=== PATIENT | female | born 1960 | race Caucasian/White ===

== ENCOUNTER → 2017-02-15 | Outpatient (CLI) | payer OTHER | END | disposition home or self-care (01) | LOC: CFH 10:40 | PROVIDERS: ATTEND Nurse Practitioner Family | DX: Z12.31 Encounter for screening mammogram for malignant neoplasm of breast (principal) | CPT/HCPCS: G0202 ==

== ENCOUNTER 2018-02-22 08:01 | Outpatient (CLI) | payer MEDICAID | END 2018-03-04 14:00 | disposition home or self-care (01) | LOC: CFH 08:01 | PROVIDERS: ATTEND Nurse Practitioner Family | DX: Z12.31 Encounter for screening mammogram for malignant neoplasm of breast (principal); Z13.820 Encounter for screening for osteoporosis; M85.88 Other specified disorders of bone density and structure, other site | CPT/HCPCS: 77080; 77067 ==

== ENCOUNTER → 2018-04-27 | Outpatient (CLI) | payer MEDICAID | END | disposition home or self-care (01) | LOC: CFH 08:10 | PROVIDERS: ATTEND Nurse Practitioner Family | DX: M47.816 Spondylosis without myelopathy or radiculopathy, lumbar region (principal); M48.061 Spinal stenosis, lumbar region without neurogenic claudication; M12.88 Other specific arthropathies, not elsewhere classified, other specified site; M53.86 Other specified dorsopathies, lumbar region | CPT/HCPCS: 72148 ==

== ENCOUNTER → 2018-07-21 | Outpatient (CLI) | payer MEDICAID ==
[~2018-07-21] MED LIST: LOSA25TA25 PO; METF500T17 PO; NAPR-685 PO
[2018-07-21 10:37] LABS: HCT (SEDRATE) 41.4 % (34.6-47.8)
[2018-07-21 10:39] LABS: BASOPHILS # (AUTO) 0.05 x10^3/uL (0-0.1); BASOPHILS % (AUTO) 1 % (0-1); EOSINOPHILS # (AUTO) 0.07 x10^3/uL (0-0.4); EOSINOPHILS % (AUTO) 1 % (1-7); LYMPHOCYTES # (AUTO) 3.33 x10^3/uL (1-3.4); LYMPHOCYTES % (AUTO) 36 % (22-44); MD NO; MEAN CORPUSCULAR HEMOGLOBIN 29.4 pg (27.0-34.8); MEAN CORPUSCULAR HGB CONC 33.2 g/dL (32.4-35.8); MEAN CORPUSCULAR VOLUME 88.6 fL (80-100); MEAN PLATELET VOLUME 6.7 fL (7.4-10.4); MONOCYTES # (AUTO) 0.66 x10^3/uL (0.2-0.8); MONOCYTES % (AUTO) 7 % (2-9); NEUTROPHILS # (AUTO) 5.09 x10^3/uL (1.8-6.8); NEUTROPHILS % (AUTO) 55 % (42-75); PLATELET COUNT 295 x10^3/uL (130-400); RED BLOOD COUNT 4.68 x10^6/uL (3.82-5.3); RED CELL DISTRIBUTION WIDTH 14.5 % (9.6-15.2)
[2018-07-21 10:44] LABS: ALANINE AMINOTRANSFERASE 24 U/L (12-78); ALBUMIN 3.6 g/dL (3.4-5.0); ANION GAP 5 mmol/L (5-15); CALCIUM 8.9 mg/dL (8.5-10.1); CHLORIDE 110 mmol/L (98-107)
[2018-07-21 10:46] LABS: INTERNATIONAL NORMALIZED RATIO 0.95 (0.93-1.1)
[2018-07-21 10:47] LABS: ALKALINE PHOSPHATASE 51 U/L (45-117); BILIRUBIN,TOTAL 0.2 mg/dL (0.2-1.0); CREATININE 0.68 mg/dL (0.55-1.02); TOTAL PROTEIN 7.3 g/dL (6.4-8.2)
[2018-07-21 10:55] LABS: MICROSCOPIC AUTO
[2018-07-21 11:01] LABS: CULTURE INDICATED? YES
== END | disposition home or self-care (01) ==
LOC: STAR 09:34
PROVIDERS: ATTEND Orthopaedic Surgery Orthopaedic Surgery of the Spine
DX: Z01.818 Encounter for other preprocedural examination (principal); R00.1 Bradycardia, unspecified
CPT/HCPCS: 36415; 71046; 80053; 81001; 85025; 85610; 85651; 85730; 87077; 87086; 87186; 93005

== ENCOUNTER 2018-07-29 05:55 | Inpatient (IN) | payer MEDICAID ==
[~2018-07-29] VITALS: Ht 157.5 cm; Wt 88.7 kg
[2018-07-29] MEDS ORDERED: LACTATED RINGERS 1,000 ML IV SCH (06:13)
[2018-07-29] MEDS ORDERED: VANCOMYCIN 1,000 MG ONE (06:52)
[2018-07-29] MEDS ORDERED: TRANEXAMIC ACID 100 MG/ML, 10ML ONE ×2 (06:52)
[2018-07-29] MEDS ORDERED: BUPIVACAINE/EPI 0.5% 1:200K ONE (06:52)
[2018-07-29] MEDS ORDERED: BACITRACIN 50,000 UNIT ONE (06:53)
[2018-07-29] MEDS ORDERED: THROMBIN 5,000 UNIT VIAL TP ONE (06:54)
[2018-07-29] MEDS ORDERED: THROMBIN 20,000 UNIT VIAL TP ONE ×2 (06:54→06:58)
[2018-07-29] MEDS ORDERED: MIDAZOLAM 1 MG/ML, 2ML ONE (07:22)
[2018-07-29] MEDS ORDERED: FENTANYL PF 250 MCG/5ML ONE (07:22)
[2018-07-29] MEDS ORDERED: LIDOCAINE 2%, 6 ML JEL.PF.APP MM ONE (07:23)
[2018-07-29] MEDS ORDERED: PROPOFOL 50 ML ONE ×3 (07:27→10:12)
[2018-07-29] MEDS ORDERED: GABAPENTIN 300 MG CAPSULE PO ONE (07:30)
[2018-07-29] MEDS ORDERED: DIAZEPAM 5 MG TABLET PO ONE (07:30)
[2018-07-29] MEDS ORDERED: OxyconTIN ER 20 MG TAB.ER PO ONE (07:30)
[2018-07-29] MEDS ORDERED: ACETAMINOPHEN 500 MG TABLET PO ONE (07:30)
[2018-07-29] MEDS ORDERED: ONDANSETRON 2MG/ML, 2ML IV PRN ×2 (08:30→14:00)
[2018-07-29] MEDS ORDERED: DIAZEPAM 5 MG/ML, 2ML IVPush PRN (08:30)
[2018-07-29] MEDS ORDERED: HYDROmorphone 2 MG/ML, 1ML IVPush PRN (08:30)
[2018-07-29] MEDS ORDERED: MEPERIDINE/PF 25MG/0.5ML IVPush PRN (08:30)
[2018-07-29] MEDS ORDERED: hydrALAzine 20 MG/ML, 1ML IV PRN (08:30)
[2018-07-29] MEDS ORDERED: MIDAZOLAM 1 MG/ML, 2ML IV PRN (08:30)
[2018-07-29] MEDS ORDERED: FENTANYL PF 100 MCG/2ML IV PRN (08:30)
[2018-07-29] MEDS ORDERED: PROMETHAZINE 25 MG/ML, 1ML IV PRN (08:30)
[2018-07-29] MEDS ORDERED: METOPROLOL 1 MG/ML, 5ML IV PRN (08:30)
[2018-07-29] MEDS ORDERED: SCOPOLAMINE PATCH, 1.5MG PATCH.TD72 TD PRN (08:30)
[2018-07-29] MEDS ORDERED: OXYcodone 5 MG/5 ML ORAL.SOL UDC PO PRN (08:30)
[2018-07-29] MEDS ORDERED: ALBUTEROL/IPRATROPIUM 2.5MG/0.5MG, 3 ML NPPB PRN (08:30)
[2018-07-29] MEDS ORDERED: CEFAZOLIN 1,000 MG ONE (10:44)
[2018-07-29] MEDS ORDERED: ONDANSETRON 2MG/ML, 2ML ONE (10:44)
[2018-07-29] MEDS ORDERED: DEXAMETHASONE 4 MG/ML, 1ML ONE (10:44)
[2018-07-29] MEDS ORDERED: PROPOFOL 10 MG/ML, 20ML ONE (10:44)
[2018-07-29] MEDS ORDERED: FENTANYL PF 100 MCG/2ML ONE (10:47)
[2018-07-29] MEDS ORDERED: KETOROLAC 30 MG/1 ML ONE (11:56)
[2018-07-29] MEDS ORDERED: KETOROLAC 30 MG/1 ML IVPush PRN (12:00)
[2018-07-29 13:10] VITALS: BP 120/79
[2018-07-29] MEDS ORDERED: DIAZEPAM 5 MG TABLET PO PRN (14:00)
[2018-07-29] MEDS ORDERED: morphine SULFATE 10 MG/ML, 1ML IV PRN (14:00)
[2018-07-29] MEDS ORDERED: ACETAMINOPHEN 325 MG TABLET PO PRN (14:00)
[2018-07-29] MEDS ORDERED: DEXAMETHASONE 4 MG/ML, 5ML IV PRN (14:00)
[2018-07-29] MEDS ORDERED: PROMETHAZINE 25 MG/ML, 1ML IM PRN (14:00)
[2018-07-29] MEDS ORDERED: MAGNESIUM HYDROXIDE 8%, 30ML UDC PO PRN (14:00)
[2018-07-29] MEDS ORDERED: OXYcodone IR 5MG TABLET PO PRN (14:00)
[2018-07-29] MEDS ORDERED: BISACODYL 10 MG SUPP PR PRN (14:00)
[2018-07-29] MEDS ORDERED: LORazepam 1MG TABLET PO PRN (14:00)
[2018-07-29] MEDS ORDERED: ACETAMINOPHEN 650 MG SUPP PR PRN (14:00)
[2018-07-29] MEDS ORDERED: DIPHENHYDRAMINE 50 MG/ML, 1ML IVPush PRN (14:00)
[2018-07-29] MEDS ORDERED: DIPHENHYDRAMINE 50 MG CAPSULE PO PRN (14:00)
[2018-07-29] MEDS ORDERED: SODIUM CHLORIDE 0.9% 1,000ML IV ONE (14:00)
[2018-07-29] MEDS ORDERED: LABETALOL 5MG/ML, 20ML IV PRN (14:00)
[2018-07-29] MEDS ORDERED: DIAZEPAM 5 MG/ML, 2ML IV PRN (14:00)
[2018-07-29] MEDS ORDERED: DIPHENHYDRAMINE 50 MG/ML, 1ML IM PRN (14:00)
[2018-07-29] MEDS ORDERED: ROCURONIUM 10MG/ML,5ML ONE (14:33)
[2018-07-29] MEDS ORDERED: SUCCINYLCHOLINE 20 MG/ML, 10ML ONE (14:33)
[2018-07-29 14:43] VITALS: BP 116/76
[2018-07-29] MEDS: D5%-0.9% NACL+KCL 20MEQ 1,000 ML IV SCH (15:13)
[2018-07-29] MEDS: CEFAZOLIN PMX 1GM/50ML 50 ML IVPB SCH ×2 (15:56→23:58)
[2018-07-29] MEDS: metFORMIN 500 MG TABLET PO SCH (17:15)
[2018-07-29] MEDS ORDERED: KETOROLAC 30 MG/1 ML IV PRN (20:00)
[2018-07-29 20:58] VITALS: BP 121/69
[2018-07-29] MEDS ORDERED: ZOLPIDEM 5MG TABLET PO PRN (21:00)
[2018-07-30 00:07] VITALS: BP 113/70
[2018-07-30] MEDS: D5%-0.9% NACL+KCL 20MEQ 1,000 ML IV SCH ×3 (02:12→20:43)
[2018-07-30] MEDS: OXYcodone IR 5MG TABLET PO PRN ×3 (04:47→22:15)
[2018-07-30 05:20] LABS: BASOPHILS # (AUTO) 0.06 x10^3/uL (0-0.1); BASOPHILS % (AUTO) 1 % (0-1); EOSINOPHILS # (AUTO) 0.01 x10^3/uL (0-0.4); EOSINOPHILS % (AUTO) 0 % (1-7); LYMPHOCYTES # (AUTO) 1.34 x10^3/uL (1-3.4); LYMPHOCYTES % (AUTO) 11 % (22-44); MD NO; MEAN CORPUSCULAR HEMOGLOBIN 30.1 pg (27.0-34.8); MEAN CORPUSCULAR VOLUME 88.6 fL (80-100); MEAN PLATELET VOLUME 6.6 fL (7.4-10.4); MONOCYTES # (AUTO) 0.81 x10^3/uL (0.2-0.8); MONOCYTES % (AUTO) 7 % (2-9); NEUTROPHILS # (AUTO) 10.03 x10^3/uL (1.8-6.8); NEUTROPHILS % (AUTO) 82 % (42-75); PLATELET COUNT 233 x10^3/uL (130-400); RED BLOOD COUNT 3.77 x10^6/uL (3.82-5.3); RED CELL DISTRIBUTION WIDTH 13.7 % (9.6-15.2)
[2018-07-30 07:57] VITALS: BP 120/71
[2018-07-30] MEDS: metFORMIN 500 MG TABLET PO SCH ×2 (08:13→16:07)
[2018-07-30] MEDS: SENNA/DOCUSATE TABLET PO SCH (08:14)
[2018-07-30] MEDS: LOSARTAN 25MG TABLET PO SCH (08:15)
[2018-07-30] MEDS ORDERED: ACETAMINOPHEN 500 MG TABLET PO PRN (10:30)
[2018-07-30 14:30] VITALS: BP 99/58
[2018-07-30 19:59] VITALS: BP 118/75
[2018-07-31] MEDS ORDERED: OXYC5CAP2 PO (00:11)
[2018-07-31] MEDS ORDERED: DIAZ5TAB4 PO (00:12)
[2018-07-31] MEDS ORDERED: CEPH-368 PO (00:13)
[2018-07-31 01:22] VITALS: BP 105/66
[2018-07-31] MEDS: OXYcodone IR 5MG TABLET PO PRN ×2 (04:46→12:14)
[2018-07-31 05:52] LABS: BASOPHILS # (AUTO) 0.04 x10^3/uL (0-0.1); BASOPHILS % (AUTO) 0 % (0-1); EOSINOPHILS % (AUTO) 0 % (1-7); LYMPHOCYTES # (AUTO) 1.86 x10^3/uL (1-3.4); LYMPHOCYTES % (AUTO) 18 % (22-44); MD NO; MEAN CORPUSCULAR HEMOGLOBIN 29.9 pg (27.0-34.8); MEAN CORPUSCULAR HGB CONC 33.5 g/dL (32.4-35.8); MEAN CORPUSCULAR VOLUME 89.3 fL (80-100); MEAN PLATELET VOLUME 6.9 fL (7.4-10.4); MONOCYTES # (AUTO) 0.98 x10^3/uL (0.2-0.8); MONOCYTES % (AUTO) 9 % (2-9); NEUTROPHILS % (AUTO) 72 % (42-75); PLATELET COUNT 237 x10^3/uL (130-400); RED BLOOD COUNT 3.69 x10^6/uL (3.82-5.3); RED CELL DISTRIBUTION WIDTH 14.7 % (9.6-15.2)
[2018-07-31 07:45] VITALS: BP 120/81
[2018-07-31] MEDS: D5%-0.9% NACL+KCL 20MEQ 1,000 ML IV SCH (08:00)
[2018-07-31] MEDS: LOSARTAN 25MG TABLET PO SCH (08:10)
[2018-07-31] MEDS: SENNA/DOCUSATE TABLET PO SCH (08:10)
[2018-07-31] MEDS: metFORMIN 500 MG TABLET PO SCH (08:10)
[2018-07-31 14:30] VITALS: BP 103/68
[2018-08-03] MEDS ORDERED: NAPROXEN 500 MG TABLET PO PRN (21:00)
== END 2018-07-31 15:20 | disposition home or self-care (01) | DRG 455 ==
LOC: ORIP 05:55 → 4NOR 12:50
PROVIDERS: ADMIT Orthopaedic Surgery Orthopaedic Surgery of the Spine; ATTEND Orthopaedic Surgery Orthopaedic Surgery of the Spine
PROC: 0SG0071 Fusion of Lumbar Vertebral Joint with Autologous Tissue Substitute, Posterior Approach, Posterior Column, Open Approach (ICD-10-PCS; 2018-07-29)
PROC: 01NB0ZZ Release Lumbar Nerve, Open Approach (ICD-10-PCS; 2018-07-29)
PROC: 0SB20ZZ Excision of Lumbar Vertebral Disc, Open Approach (ICD-10-PCS; 2018-07-29)
PROC: 4A11X4G Monitoring of Peripheral Nervous Electrical Activity, Intraoperative, External Approach (ICD-10-PCS; 2018-07-29)
PROC: 07DR3ZZ Extraction of Iliac Bone Marrow, Percutaneous Approach (ICD-10-PCS; 2018-07-29)
PROC: 0SG00AJ Fusion of Lumbar Vertebral Joint with Interbody Fusion Device, Posterior Approach, Anterior Column, Open Approach (ICD-10-PCS; principal; 2018-07-29 07:30)
DX: M48.061 Spinal stenosis, lumbar region without neurogenic claudication (principal); M43.16 Spondylolisthesis, lumbar region; M54.16 Radiculopathy, lumbar region; I10 Essential (primary) hypertension; E11.9 Type 2 diabetes mellitus without complications; E66.9 Obesity, unspecified; Z68.35 Body mass index [BMI] 35.0-35.9, adult; Z88.6 Allergy status to analgesic agent
CPT/HCPCS: 36415; 72100; 82962; 85025; C1713; G0378; J0690; J1100; J1885; J2250; J2270; J2405; J2704; J3010; J3370; C1760; C1762; C1763; C9362; J0330; J3480; J7120

== ENCOUNTER 2018-08-02 19:54 | Inpatient (IN) | payer MEDICAID ==
[~2018-08-02] VITALS: Ht 154.9 cm; Wt 90.7 kg
[~2018-08-02 19:54] MED LIST changes: +CEPH-368 PO; +DIAZ5TAB4 PO; +OXYC5CAP2 PO
--- NOTE | 2018-08-02 20:06 | NUR ---
TASK RN: PT DIFFICULT TO AROUSE ON ARRIVAL, PTS DAUGHTERS REPORTS MOTHER ON REGIMEN OF PAIN CONTROL S/P FOR HER SPINAL FUSION. PT IS AOX4 WITH CONFUSING THE YEAR ONE TIME. PA AT BEDSIDE AND DOES NOT WANT NARCAN GIVEN. PT PLACED ON 4L NC DUE TO DECREASED RESPIRATORY DRIVE AND AND LOW SPO2. ETCO2 READING 19-30 AT THIS TIME AND PA AWARE. PA IS INFORMING MD AT THIS TIME. NO IV ACCESSE FROM EMS, CARE RN TO ATTEMPT PIV.
--- NOTE | 2018-08-02 20:10 | NUR ---
REPORT FROM YARELIS FRAZIER. PT LAYING IN GURNEY, RESPIRATIONS SHALLOW BUT UNLABORED. SPO2 >90% ON 4L BY NC. RR 18. PT AWAKE BUT DROWSY, RESPONSIVE TO PHYSICAL STIM/VOICE. DAUGHTER REPORTS BACK SURGERY WEDNESDAY. PT TAKING PAIN MEDICATIONS, RELUCTANT TO WALK. +FREQUENT URINATION/CONSTIPATION/FEVER 101 AT HOME. LBM: WEDNESDAY. +DISTAL CMS. SURGICAL SITE APPEARS PINK, WELL APPROXIMATED. NO DRAINAGE NOTED. BP/SPO2/ETCO2 MONITORING IN PLACE. AWAITING ORDERS.
[2018-08-02] MEDS ORDERED: SODIUM CHLORIDE FLUSH 10ML SYR IVF ONE (20:30)
--- NOTE | 2018-08-02 20:30 | NUR ---
STRAIGHT CATH COMPLETED AND WALKED TO LAB BP/SPO2/ECG MONITORING IN PLACE. ETCO2 IN PLACE. PT REMAINS ARROUSABLE TO VOICE AND PHYSICAL STIM THEN RETURNS QUICKLY TO SLEEPING.
[2018-08-02 20:35] LABS: BASOPHILS # (AUTO) 0.05 x10^3/uL (0-0.1); BASOPHILS % (AUTO) 0 % (0-1); EOSINOPHILS # (AUTO) 0.19 x10^3/uL (0-0.4); EOSINOPHILS % (AUTO) 2 % (1-7); LYMPHOCYTES # (AUTO) 2.47 x10^3/uL (1-3.4); LYMPHOCYTES % (AUTO) 22 % (22-44); MD NO; MEAN CORPUSCULAR HEMOGLOBIN 29.1 pg (27.0-34.8); MEAN CORPUSCULAR HGB CONC 32.4 g/dL (32.4-35.8); MEAN CORPUSCULAR VOLUME 89.7 fL (80-100); MEAN PLATELET VOLUME 6.7 fL (7.4-10.4); MONOCYTES % (AUTO) 7 % (2-9); NEUTROPHILS # (AUTO) 7.87 x10^3/uL (1.8-6.8); NEUTROPHILS % (AUTO) 69 % (42-75); PLATELET COUNT 292 x10^3/uL (130-400); RED BLOOD COUNT 4.81 x10^6/uL (3.82-5.3); RED CELL DISTRIBUTION WIDTH 14.1 % (9.6-15.2)
[2018-08-02 20:47] LABS: ALANINE AMINOTRANSFERASE 22 U/L (12-78); ALBUMIN 2.9 g/dL (3.4-5.0); ANION GAP 7 mmol/L (5-15); CALCIUM 8.9 mg/dL (8.5-10.1); CHLORIDE 102 mmol/L (98-107)
[2018-08-02 20:50] LABS: ALKALINE PHOSPHATASE 47 U/L (45-117); BILIRUBIN,TOTAL 0.8 mg/dL (0.2-1.0); TOTAL PROTEIN 7.5 g/dL (6.4-8.2)
[2018-08-02] MEDS ORDERED: AMPICILLIN/SULBACTAM 3 GM in SODIUM CHLORIDE 0.9% 100 ML IV ONE (21:00)
[2018-08-02] MEDS ORDERED: METRONIDAZOLE PMX 500MG/100ML 100 ML IV ONE (21:00)
--- NOTE | 2018-08-02 21:15 | NUR ---
PT LAYING IN GURNEY W/ EYES CLOSED. REGULAR, SHALLOW RESPIRATIONS NOTED. PT REPOSITIONED FOR OPTIMAL VENTILATION. FAMILY AT BEDSIDE. PT REMAINS ARROUSABLE TO VOICE AND LIGHT PHYSICAL STIM THEN RETURNS QUICKLY TO SLEEPING. SPO2 >90% ON 4L
[2018-08-02 21:31] LABS: MICROSCOPIC INDICATED
[2018-08-02 21:43] LABS: CULTURE INDICATED? YES
--- NOTE | 2018-08-02 22:37 | NUR ---
FAMILY UPDATED TO POC (ADMITTING UNIT/ROOM NUMBER) AND DEMONSTRATES UNDERSTANDING.
--- NOTE | 2018-08-02 22:47 | NUR ---
REPORT TO YARELIS WALSH
[2018-08-02 23:30] VITALS: BP 115/75
[2018-08-03] MEDS ORDERED: ONDANSETRON 2MG/ML, 2ML IVPush PRN
[2018-08-03] MEDS ORDERED: LABETALOL 5MG/ML, 20ML IVPush PRN
[2018-08-03] MEDS ORDERED: OXYcodone/APAP 5/325MG TABLET PO PRN
[2018-08-03] MEDS ORDERED: CYCLOBENZAPRINE 10 MG TABLET PO PRN
[2018-08-03 00:17] LABS: THYROID STIMULATING HORMONE 1.43 mIU/L (0.358-3.740)
[2018-08-03 00:20] LABS: HEMOGLOBIN A1C 6.1 % (4.2-6.3)
[2018-08-03] MEDS: LACTATED RINGERS 1,000 ML IV SCH ×3 (01:16→16:07)
[2018-08-03] MEDS: ENOXAPARIN 40 MG/0.4 ML SQ SCH ×2 (01:17→21:07)
[2018-08-03] MEDS: KETOROLAC 30 MG/1 ML IV PRN ×4 (01:38→22:29)
[2018-08-03 03:50] VITALS: BP 97/63
[2018-08-03] MEDS ORDERED: CEPHALEXIN 500 MG CAPSULE PO SCH (06:00)
[2018-08-03 06:03] LABS: ANION GAP 5 mmol/L (5-15); CALCIUM 8.6 mg/dL (8.5-10.1); CHLORIDE 103 mmol/L (98-107); CREATININE 0.62 mg/dL (0.55-1.02)
[2018-08-03 06:32] LABS: BASOPHILS # (AUTO) 0.04 x10^3/uL (0-0.1); BASOPHILS % (AUTO) 0 % (0-1); EOSINOPHILS # (AUTO) 0.24 x10^3/uL (0-0.4); EOSINOPHILS % (AUTO) 3 % (1-7); HEMOGRAM NOTE RECHECKED; LYMPHOCYTES # (AUTO) 1.76 x10^3/uL (1-3.4); LYMPHOCYTES % (AUTO) 20 % (22-44); MD NO; MEAN CORPUSCULAR HEMOGLOBIN 29.4 pg (27.0-34.8); MEAN CORPUSCULAR HGB CONC 33.6 g/dL (32.4-35.8); MEAN CORPUSCULAR VOLUME 87.5 fL (80-100); MEAN PLATELET VOLUME 6.6 fL (7.4-10.4); MONOCYTES # (AUTO) 0.66 x10^3/uL (0.2-0.8); MONOCYTES % (AUTO) 8 % (2-9); NEUTROPHILS # (AUTO) 6.12 x10^3/uL (1.8-6.8); NEUTROPHILS % (AUTO) 70 % (42-75); PLATELET COUNT 259 x10^3/uL (130-400); RED BLOOD COUNT 3.91 x10^6/uL (3.82-5.3); RED CELL DISTRIBUTION WIDTH 13.8 % (9.6-15.2)
[2018-08-03] MEDS: INSULIN LISPRO 100 UNITS/ML, PEN SQ-INSULIN SCH ×4 (07:00→21:07)
[2018-08-03 07:52] VITALS: BP 103/69
[2018-08-03] MEDS: SENNA/DOCUSATE TABLET PO SCH (07:58)
[2018-08-03] MEDS: POLYETHYLENE GLYCOL 17 GM PACKET PO SCH (07:58)
[2018-08-03] MEDS: LOSARTAN 25MG TABLET PO SCH (07:58)
[2018-08-03] MEDS ORDERED: PHARMACY MAY ADJ FOR RENAL FX MC PRN (08:30)
[2018-08-03] MEDS ORDERED: CEFTRIAXONE 1,000 MG in SODIUM CHLORIDE 0.9% 50 ML IVPB SCH (08:30)
[2018-08-03] MEDS: AZITHROMYCIN 500 MG in SODIUM CHLORIDE 0.9% 250 ML IV SCH (09:51)
[2018-08-03] MEDS: GUAIFENESIN 200 MG TABLET PO SCH ×3 (10:04→21:07)
[2018-08-03 15:38] VITALS: BP 98/62
[2018-08-03] MEDS ORDERED: BISACODYL 10 MG SUPP PR PRN ×2 (17:00)
[2018-08-03 20:35] VITALS: BP 93/58
[2018-08-04 01:28] VITALS: BP 101/65
[2018-08-04] MEDS: KETOROLAC 30 MG/1 ML IV PRN ×3 (04:58→19:27)
[2018-08-04] MEDS: GUAIFENESIN 200 MG TABLET PO SCH ×4 (04:58→20:23)
[2018-08-04] MEDS: LACTATED RINGERS 1,000 ML IV SCH ×2 (04:58→18:10)
[2018-08-04 05:43] LABS: BASOPHILS # (AUTO) 0.03 x10^3/uL (0-0.1); BASOPHILS % (AUTO) 0 % (0-1); EOSINOPHILS # (AUTO) 0.22 x10^3/uL (0-0.4); EOSINOPHILS % (AUTO) 3 % (1-7); LYMPHOCYTES % (AUTO) 27 % (22-44); MD NO; MEAN CORPUSCULAR HEMOGLOBIN 29.4 pg (27.0-34.8); MEAN CORPUSCULAR VOLUME 89.1 fL (80-100); MEAN PLATELET VOLUME 6.8 fL (7.4-10.4); MONOCYTES # (AUTO) 0.53 x10^3/uL (0.2-0.8); MONOCYTES % (AUTO) 7 % (2-9); NEUTROPHILS # (AUTO) 4.75 x10^3/uL (1.8-6.8); NEUTROPHILS % (AUTO) 63 % (42-75); PLATELET COUNT 272 x10^3/uL (130-400); RED BLOOD COUNT 3.97 x10^6/uL (3.82-5.3); RED CELL DISTRIBUTION WIDTH 14.1 % (9.6-15.2)
[2018-08-04 05:56] LABS: ANION GAP 3 mmol/L (5-15); CALCIUM 8.4 mg/dL (8.5-10.1); CHLORIDE 107 mmol/L (98-107)
[2018-08-04 05:59] LABS: CREATININE 0.62 mg/dL (0.55-1.02)
[2018-08-04] MEDS: INSULIN LISPRO 100 UNITS/ML, PEN SQ-INSULIN SCH ×4 (07:00→20:27)
[2018-08-04 07:31] VITALS: BP 107/70
[2018-08-04] MEDS: LOSARTAN 25MG TABLET PO SCH (09:31)
[2018-08-04] MEDS: SENNA/DOCUSATE TABLET PO SCH (09:32)
[2018-08-04] MEDS: POLYETHYLENE GLYCOL 17 GM PACKET PO SCH (09:32)
[2018-08-04] MEDS ORDERED: CEFTRIAXONE PMX 1GM/50ML 50 ML IVPB SCH (10:00)
[2018-08-04 13:30] VITALS: BP 105/71
[2018-08-04 19:52] VITALS: BP 90/50
[2018-08-04 20:21] VITALS: BP 100/63
[2018-08-04] MEDS: ENOXAPARIN 40 MG/0.4 ML SQ SCH (20:23)
[2018-08-05 01:09] VITALS: BP 108/54
[2018-08-05] MEDS: GUAIFENESIN 200 MG TABLET PO SCH (05:31)
[2018-08-05] MEDS: INSULIN LISPRO 100 UNITS/ML, PEN SQ-INSULIN SCH ×4 (07:00→19:56)
[2018-08-05 07:03] VITALS: BP 116/74
[2018-08-05] MEDS ORDERED: GABAPENTIN 100 MG CAPSULE PO PRN (09:00)
[2018-08-05] MEDS: POLYETHYLENE GLYCOL 17 GM PACKET PO SCH (09:55)
[2018-08-05] MEDS: SENNA/DOCUSATE TABLET PO SCH (09:55)
[2018-08-05] MEDS: LOSARTAN 25MG TABLET PO SCH (09:55)
[2018-08-05] MEDS: AZITHROMYCIN 500 MG TABLET PO SCH (10:02)
[2018-08-05 10:37] LABS: CREATINE KINASE, TOTAL 64 U/L (26-192)
[2018-08-05] MEDS: METHOCARBAMOL 500 MG TABLET PO SCH ×3 (11:10→19:50)
[2018-08-05] MEDS ORDERED: LACTULOSE 20 GM/30 ML UDC PO ONE (13:00)
[2018-08-05] MEDS ORDERED: POLY17PO5 PO (13:35)
[2018-08-05] MEDS ORDERED: METH500T7 PO (13:35)
[2018-08-05] MEDS ORDERED: SENN-177 PO (13:35)
[2018-08-05] MEDS ORDERED: KETO30VI27 IV (13:35)
[2018-08-05] MEDS ORDERED: AZIT500T5 PO (13:35)
[2018-08-05] MEDS ORDERED: TRAM50TA2 PO (13:35)
[2018-08-05] MEDS ORDERED: GABA-826 PO (13:35)
[2018-08-05] MEDS ORDERED: BISA10SU54 PR (13:35)
[2018-08-05] MEDS ORDERED: CEFD300C37 PO (13:35)
[2018-08-05 15:19] VITALS: BP 130/83
[2018-08-05 18:18] VITALS: BP 129/84
[2018-08-05 19:31] VITALS: BP 117/76
[2018-08-05] MEDS: ACETAMINOPHEN 325 MG TABLET PO PRN (19:34)
[2018-08-05] MEDS: CEFDINIR 300 MG CAPSULE PO SCH (19:50)
[2018-08-05] MEDS: ENOXAPARIN 40 MG/0.4 ML SQ SCH (19:51)
[2018-08-06 01:39] VITALS: BP 118/79
[2018-08-06] MEDS: ACETAMINOPHEN 325 MG TABLET PO PRN ×2 (03:02→17:09)
[2018-08-06] MEDS: METHOCARBAMOL 500 MG TABLET PO SCH ×3 (05:21→16:00)
[2018-08-06 06:52] VITALS: BP 117/71
[2018-08-06] MEDS: INSULIN LISPRO 100 UNITS/ML, PEN SQ-INSULIN SCH ×3 (07:00→16:00)
[2018-08-06] MEDS: SENNA/DOCUSATE TABLET PO SCH (09:00)
[2018-08-06] MEDS: POLYETHYLENE GLYCOL 17 GM PACKET PO SCH (09:00)
[2018-08-06] MEDS: LOSARTAN 25MG TABLET PO SCH (09:58)
[2018-08-06] MEDS: AZITHROMYCIN 500 MG TABLET PO SCH (09:58)
[2018-08-06] MEDS: CEFDINIR 300 MG CAPSULE PO SCH (09:58)
[2018-08-06 13:32] VITALS: BP 142/84
[2018-08-06] MEDS: KETOROLAC 30 MG/1 ML IV PRN (14:05)
== END 2018-08-07 08:08 | DRG 91 ==
LOC: ED 20:52 → EDIP 22:01 → 3NE 23:20
PROVIDERS: ADMIT Family Medicine; ATTEND Family Medicine
PROC: 0T9B70Z Drainage of Bladder with Drainage Device, Via Natural or Artificial Opening (ICD-10-PCS; principal; 2018-08-02)
DX: G92 Toxic encephalopathy (principal); J18.9 Pneumonia, unspecified organism; J96.01 Acute respiratory failure with hypoxia; E66.2 Morbid (severe) obesity with alveolar hypoventilation; E11.9 Type 2 diabetes mellitus without complications; E86.0 Dehydration; I10 Essential (primary) hypertension; G89.29 Other chronic pain; M62.838 Other muscle spasm; R53.81 Other malaise; K59.00 Constipation, unspecified; Z79.84 Long term (current) use of oral hypoglycemic drugs; Z79.899 Other long term (current) drug therapy; Z82.49 Family history of ischemic heart disease and other diseases of the circulatory system; Z83.3 Family history of diabetes mellitus; Z98.1 Arthrodesis status; Z87.440 Personal history of urinary (tract) infections; Z68.37 Body mass index [BMI] 37.0-37.9, adult; Z88.6 Allergy status to analgesic agent
CPT/HCPCS: 36415; 71045; 80048; 80053; 81001; 82140; 82550; 82607; 82962; 83036; 83605; 83735; 84100; 84145; 84443; 85025; 87040; 87086; 87205; 93005; 93970; 99285; G0378; J0456; J0696; J1650; J1885; J1815; J7050; J7120

== ENCOUNTER 2018-10-21 08:33 | Outpatient (CLI) | payer MEDICAID ==
[~2018-10-21 08:33] MED LIST changes: +AZIT500T5 PO; +BISA10SU54 PR; +CEFD300C37 PO; +GABA-826 PO; +KETO30VI27 IV; +METH500T7 PO; +POLY17PO5 PO; +SENN-177 PO; +TRAM50TA2 PO
[2018-10-21] MEDS ORDERED: TRAM50TA2 PO (09:12)
[2018-10-21 09:44] LABS: BASOPHILS # (AUTO) 0.03 x10^3/uL (0-0.1); BASOPHILS % (AUTO) 0 % (0-1); EOSINOPHILS # (AUTO) 0.04 x10^3/uL (0-0.4); EOSINOPHILS % (AUTO) 1 % (1-7); LYMPHOCYTES # (AUTO) 2.22 x10^3/uL (1-3.4); LYMPHOCYTES % (AUTO) 31 % (22-44); MD NO; MEAN CORPUSCULAR HEMOGLOBIN 28.1 pg (27.0-34.8); MEAN CORPUSCULAR HGB CONC 32.3 g/dL (32.4-35.8); MEAN PLATELET VOLUME 6.3 fL (7.4-10.4); MONOCYTES # (AUTO) 0.55 x10^3/uL (0.2-0.8); MONOCYTES % (AUTO) 8 % (2-9); NEUTROPHILS # (AUTO) 4.26 x10^3/uL (1.8-6.8); NEUTROPHILS % (AUTO) 60 % (42-75); PLATELET COUNT 289 x10^3/uL (130-400); RED CELL DISTRIBUTION WIDTH 14.8 % (9.6-15.2)
[2018-10-21 09:46] LABS: CULTURE INDICATED? YES; MICROSCOPIC INDICATED
[2018-10-21 09:53] LABS: PROTHROMBIN TIME 10.5 Seconds (9.6-11.5)
[2018-10-21 09:54] LABS: ALANINE AMINOTRANSFERASE 22 U/L (12-78); ALBUMIN 3.7 g/dL (3.4-5.0); ANION GAP 5 mmol/L (5-15); CALCIUM 9.3 mg/dL (8.5-10.1); CHLORIDE 110 mmol/L (98-107)
[2018-10-21 09:56] LABS: ALKALINE PHOSPHATASE 56 U/L (45-117); BILIRUBIN,TOTAL 0.4 mg/dL (0.2-1.0); CREATININE 0.65 mg/dL (0.55-1.02); TOTAL PROTEIN 7.5 g/dL (6.4-8.2)
[2018-10-21 10:30] LABS: HEMOGLOBIN A1C 6.6 % (4.2-6.3)
[2018-10-21 10:31] LABS: HCT (SEDRATE) 41.8 % (34.6-47.8)
== END 2018-10-21 23:59 | disposition home or self-care (01) ==
LOC: STAR 08:33
PROVIDERS: ATTEND Orthopaedic Surgery Orthopaedic Surgery of the Spine
DX: Z01.818 Encounter for other preprocedural examination (principal); T85.898A Other specified complication of other internal prosthetic devices, implants and grafts, initial encounter; Y92.89 Other specified places as the place of occurrence of the external cause
CPT/HCPCS: 36415; 80053; 81001; 83036; 85025; 85610; 85651; 85730; 87086

== ENCOUNTER 2018-10-28 09:58 | Inpatient (IN) | payer MEDICAID ==
[~2018-10-28] VITALS: Ht 154.9 cm; Wt 87.5 kg
[2018-10-29 08:15] VITALS: BP 116/72
== END 2018-10-29 10:58 | disposition home or self-care (01) | DRG 517 ==
LOC: OUT 09:58 → 4NOR 17:24 → OUT 17:25 → DCLOUNGE 10-29 10:45
PROVIDERS: ADMIT Orthopaedic Surgery Orthopaedic Surgery of the Spine; ATTEND Orthopaedic Surgery Orthopaedic Surgery of the Spine
PROC: 4A11X4G Monitoring of Peripheral Nervous Electrical Activity, Intraoperative, External Approach (ICD-10-PCS; principal; 2018-10-28)
PROC: 0SW Lower Joints, Revision (ICD-10-PCS; 2018-10-28)
DX: T84.84XA Pain due to internal orthopedic prosthetic devices, implants and grafts, initial encounter (principal); Y83.1 Surgical operation with implant of artificial internal device as the cause of abnormal reaction of the patient, or of later complication, without mention of misadventure at the time of the procedure; I10 Essential (primary) hypertension; E11.9 Type 2 diabetes mellitus without complications; E66.9 Obesity, unspecified; Z88.8 Allergy status to other drugs, medicaments and biological substances; Z68.36 Body mass index [BMI] 36.0-36.9, adult
CPT/HCPCS: 36415; 72100; 82962; 85025; G0378; J0690; J1100; J1885; J2250; J2274; J2405; J2704; J3010; J3370; C1760; J0330; J2370; J3480; J7120

== ENCOUNTER → 2020-02-16 | Outpatient (CLI) | payer MEDICAID ==
[~2020-02-16] MED LIST changes: +AZIT500T10 PO; -AZIT500T5 PO; +OMNIPAQUE 350 MG/ML, 100ML BOTTLE ONE
== END | disposition home or self-care (01) ==
LOC: CFH 14:20
PROVIDERS: ATTEND Family Medicine
DX: M43.16 Spondylolisthesis, lumbar region (principal)
CPT/HCPCS: 74177; 82565; Q9967

== ENCOUNTER → 2020-08-06 | Outpatient (CLI) | payer MEDICAID ==
[~2020-08-06] MED LIST changes: +GADOTERATE 10 MMOL/20ML SYR ONE; +METH-639 PO; -METH500T7 PO; -OMNIPAQUE 350 MG/ML, 100ML BOTTLE ONE
== END | disposition home or self-care (01) ==
LOC: CFH 12:23
PROVIDERS: ATTEND Orthopaedic Surgery Orthopaedic Surgery of the Spine
DX: Z12.31 Encounter for screening mammogram for malignant neoplasm of breast (principal); M70.62 Trochanteric bursitis, left hip; Y93.89 Activity, other specified
CPT/HCPCS: 73723; 77067; A9575